=== PATIENT | male | born 2000 | race African-American/Black ===

== ENCOUNTER 2022-10-17 04:15 | Emergency (ER) | payer OTHER ==
[~2022-10-17] VITALS: Ht 195.6 cm; Wt 99.8 kg
[2022-10-17 04:15] VITALS: BP 131/90
--- NOTE | 2022-10-17 04:18 | NUR ---
TO LOBBY A/W BED VIA W/C
--- NOTE | 2022-10-17 05:34 | NUR ---
PT TAKEN TO BED 4
--- NOTE | 2022-10-17 05:38 | NUR ---
Patient BIB by friend. C/O anxiety x today, CP x 1 month. Patient reported, had chest pain, pressure and tightness for a month, Patient went to [facility], Dx Panic attack, Rx Buspirone.
--- NOTE | 2022-10-17 05:40 | NUR ---
Dr. Villaseñor examining patient.
[2022-10-17] MEDS ORDERED: LORazepam 1 MG TAB PO ONE (05:50)
--- NOTE | 2022-10-17 06:11 | NUR ---
Dr. Gil examining patient.
--- NOTE | 2022-10-17 06:17 | NUR ---
X-Ray at bedside.
--- NOTE | 2022-10-17 06:24 | NUR ---
PATIENT UP AMBULATING TO RESTROOM WITHOUT ASSISTANCE
[2022-10-17 06:55] LABS: BASOPHILS % (AUTO) 0.6 % (0.0-2.0); EOSINOPHILS # (AUTO) 0.1 K/uL (0-0.4); EOSINOPHILS % (AUTO) 2.2 % (0.0-4.0); HEMATOCRIT 42.8 % (36-52); HEMOGLOBIN 14.3 g/dL (12.0-18.0); LYMPHOCYTES # (AUTO) 1.4 K/uL (2.0-11.5); LYMPHOCYTES % (AUTO) 22.8 % (20.5-51.1); MEAN CORPUSCULAR HEMOGLOBIN 27 pg (27-31); MEAN CORPUSCULAR HGB CONC 34 g/dL (33-37); MEAN CORPUSCULAR VOLUME 81.8 fL (80-94); MONOCYTES # (AUTO) 0.6 K/uL (0.8-1.0); NEUTROPHILS # (AUTO) 4.1 K/uL (1.8-7.7); NEUTROPHILS % (AUTO) 65.4 % (42.2-75.2); PLATELET COUNT (AUTO) 212 K/uL (140-450); RED BLOOD CELL COUNT(AUTO) 5.22 MIL/uL (4.20-6.10); RED CELL DISTRIBUTION WIDTH 12.9 % (11.6-13.7); WHITE BLOOD COUNT (AUTO) 6.3 K/uL (4.8-10.8)
[2022-10-17 07:15] LABS: ALBUMIN 3.9 g/dL (3.4-5.0); ANION GAP 10.8 (8-16); ASPARTATE AMINOTRANSFERASE 14 U/L (15-37); CARBON DIOXIDE 29.3 mmol/L (21-32); CHLORIDE 103 mmol/L (98-107); CREATININE 1.4 mg/dL (0.6-1.3); GFR ARICAN-AMERICAN 82 mL/min (>90); GLUCOSE 107 mg/dL (74-106); POTASSIUM 3.1 mmol/L (3.5-5.1); SODIUM SERUM 140 mmol/L (136-145); TOTAL BILIRUBIN 0.2 mg/dL (0.0-1.0); UREA NITROGEN, BLOOD 13 mg/dL (7-18)
[2022-10-17] MEDS ORDERED: NACL 0.9% 1,000 ML IV ONE (07:25)
[2022-10-17] MEDS ORDERED: POTASSIUM CHLORIDE 20% 40 MEQ/15 ML UDC PO ONE (07:25)
--- NOTE | 2022-10-17 07:25 | NUR ---
Report given to AIDEN Avilez and endorse care of patient.
[2022-10-17] MEDS ORDERED: ATA25 PO (07:53)
[2022-10-17 08:41] VITALS: BP 114/72
== END 2022-10-17 08:41 | disposition home or self-care (01) ==
LOC: MED 04:15
DX: F41.9 Anxiety disorder, unspecified (principal); R07.9 Chest pain, unspecified; R68.2 Dry mouth, unspecified; Z79.899 Other long term (current) drug therapy
CPT/HCPCS: 36415; 71045; 80053; 84484; 85025; 93005; 96360; 99285; J7030; Q0092

== ENCOUNTER 2022-10-20 05:35 | Emergency (ER) | payer OTHER ==
[~2022-10-20] VITALS: Ht 195.6 cm; Wt 99.8 kg
[~2022-10-20 05:35] MED LIST: ATA25 PO
[2022-10-20 05:47] VITALS: BP 114/82; PULSE 81; RESP 18; TEMP 98.8; O2SAT 95
[2022-10-20] MEDS ORDERED: LORazepam 1 MG TAB PO ONE (06:45)
--- NOTE | 2022-10-20 07:53 | NUR ---
AMBD. TO BED 1 W NO ACUTE DISTRESS. NO SOB
--- NOTE | 2022-10-20 08:09 | NUR ---
22 YO MALE BIBS PRESENTS TO THE ED CHEST TIGHTNESS, 5/10 LEFT SIDED CHEST PAIN, NAUSEA, DROWSINESS, MOUTH DRYNESS AND ANXIETY PATIENT STATED CHEST PAIN STARTED LAST WEEK. STATES HE ALSO HAS BEEN GETTING PANIC ATTACKS FOR ABOUT 2 MONTHS. PMH: ASTHMA.
[2022-10-20 08:10] LABS: BASOPHILS # (AUTO) 0.1 K/uL (0.00-0.22); BASOPHILS % (AUTO) 1.1 % (0.0-2.0); EOSINOPHILS # (AUTO) 0.2 K/uL (0-0.4); EOSINOPHILS % (AUTO) 5.2 % (0.0-4.0); HEMATOCRIT 47.9 % (36-52); LYMPHOCYTES # (AUTO) 1.7 K/uL (2.0-11.5); LYMPHOCYTES % (AUTO) 35.3 % (20.5-51.1); MEAN CORPUSCULAR HEMOGLOBIN 28 pg (27-31); MEAN CORPUSCULAR HGB CONC 33 g/dL (33-37); MEAN CORPUSCULAR VOLUME 82.4 fL (80-94); MONOCYTES # (AUTO) 0.5 K/uL (0.8-1.0); MONOCYTES % (AUTO) 9.5 % (1.7-9.3); NEUTROPHILS # (AUTO) 2.3 K/uL (1.8-7.7); NEUTROPHILS % (AUTO) 48.9 % (42.2-75.2); PLATELET COUNT (AUTO) 242 K/uL (140-450); RED BLOOD CELL COUNT(AUTO) 5.82 MIL/uL (4.20-6.10); RED CELL DISTRIBUTION WIDTH 12.6 % (11.6-13.7); WHITE BLOOD COUNT (AUTO) 4.8 K/uL (4.8-10.8)
[2022-10-20 08:31] LABS: ALBUMIN 4.1 g/dL (3.4-5.0); ANION GAP 12.1 (8-16); ASPARTATE AMINOTRANSFERASE 16 U/L (15-37); CHLORIDE 100 mmol/L (98-107); CREATININE 1.5 mg/dL (0.6-1.3); GFR ARICAN-AMERICAN 76 mL/min (>90); GLUCOSE 88 mg/dL (74-106); POTASSIUM 4.1 mmol/L (3.5-5.1); SODIUM SERUM 140 mmol/L (136-145); TOTAL BILIRUBIN 0.4 mg/dL (0.0-1.0); UREA NITROGEN, BLOOD 10 mg/dL (7-18)
[2022-10-20] MEDS ORDERED: LORA-476 PO (09:58)
== END 2022-10-20 10:04 | disposition home or self-care (01) ==
LOC: MED 05:35
DX: R06.02 Shortness of breath (principal); R07.89 Other chest pain; F41.9 Anxiety disorder, unspecified; R05.9 Cough, unspecified; J45.909 Unspecified asthma, uncomplicated; Z79.899 Other long term (current) drug therapy; Z88.0 Allergy status to penicillin
CPT/HCPCS: 36415; 71045; 80053; 84484; 85025; 85379; 93005; 99285